=== PATIENT | female | born 1995 | race Caucasian/White ===

== ENCOUNTER 2022-03-22 10:10 | Inpatient (IN) ==
[2022-03-22] MEDS ORDERED: CITRIC ACID/SODIUM CITRATE 30 ML UDCUP PO ONE (11:15)
[2022-03-22] MEDS ORDERED: TRANEXAMIC ACID 1,000 MG in SODIUM CHLORIDE 0.9% 100 ML IV PRN (11:15)
[2022-03-22] MEDS ORDERED: ceFAZolin 2,000 MG/50 ML DUPLEX IV ONE (11:15)
[2022-03-22] MEDS ORDERED: OXYTOCIN/LR 20 UNIT/1,000 ML BAG IV ONE ×3 (11:15→18:52)
[2022-03-22] MEDS ORDERED: miSOPROStoL 200 MCG TABLET RECTAL PRN (11:15)
[2022-03-22] MEDS ORDERED: METHYLERGONOVINE 0.2 MG/1 ML AMP IM PRN (11:15)
[2022-03-22] MEDS ORDERED: FAMOTIDINE 20 MG/2 ML VIAL IV ONE (11:15)
[2022-03-22] MEDS ORDERED: CARBOPROST TROMETHAMINE 250 MCG/ML AMP IM PRN (11:15)
[2022-03-22] MEDS ORDERED: LACTATED RINGERS 1,000 ML IV SCH ×3 (11:30→18:52)
[2022-03-22 11:33] LABS: Basophils % 0.4 % (0.0-0.8); Eosinophils # 0.1 10*3/uL (0.0-0.87); Eosinophils % 0.6 % (0.00-10.9); Hematocrit 30.8 VOL% (35.7-47.0); Hemoglobin 9.6 GM/DL (12.0-16.0); Immature Granulocytes % 0.8 %; Immature Granulocytes Absolute 0.08 #; Lymphocytes % 20.5 % (21.3-54.2); Mean Corpuscular HGB Conc 31.2 GM/DL (32-36); Mean Corpuscular Volume 77.4 FL (87-102); Mean Platelet Volume 10.6 FL (9.6-12.0); Monocytes # 0.5 10*3/uL (0.11-0.8); Monocytes % 5.3 % (1.7-12.7); Neutrophils % 72.4 % (38.7-73.9); Platelet Count 202 T/CUMM (130-400); Red Blood Count 3.98 MC/CUMM (3.8-5.5); Red Cell Distribution Width 15.2 % (9.3-17.3); White Blood Count 9.8 T/CUMM (4-12)
[2022-03-22 11:52] LABS: Albumin 2.7 G/DL (3.4-5.0); Bilirubin,Total 0.5 MG/DL (0.20-1.00); Calcium 8.6 MG/DL (8.5-10.1); Osmolality,Calculated 274.5 MOS/KG (273-304); Potassium 3.5 MMOL/L (3.5-5.1); Total Protein 6.7 G/DL (6.4-8.2)
[2022-03-22] MEDS ORDERED: OXYTOCIN 10 UNIT/ML VIAL IM ONE ×2 (14:00→14:06)
[2022-03-22] MEDS ORDERED: OXYTOCIN/LR 30 UNIT/1,000 ML BAG IV ONE (14:00)
[2022-03-22] MEDS ORDERED: miSOPROStoL 200 MCG TABLET ONE (14:04)
[2022-03-22] MEDS ORDERED: CARBOPROST TROMETHAMINE 250 MCG/ML AMP IM ONE (14:04)
[2022-03-22] MEDS ORDERED: METHYLERGONOVINE 0.2 MG/1 ML AMP ONE (14:04)
[2022-03-22] MEDS ORDERED: buprenorphine HCL 0.3 MG/ML VIAL ONE ×2 (14:14→14:25)
[2022-03-22] MEDS ORDERED: ONDANSETRON 4 MG/2 ML VIAL ONE (14:38)
[2022-03-22] MEDS ORDERED: ACETAMINOPHEN INJ 1,000 MG/100 ML VIAL IV ONE (14:39)
[2022-03-22] MEDS ORDERED: KETOROLAC 30 MG/1 ML VIAL ONE (14:39)
[2022-03-22] MEDS ORDERED: ePHEDrine 50 MG/ML VIAL ONE (15:03)
[2022-03-22] MEDS ORDERED: DEXAMETHASONE 4 MG/1 ML VIAL ONE (15:19)
[2022-03-22 15:30] LABS: Cord Arterial Blood HCO3 22.9 MMOL/L
[2022-03-22 15:32] LABS: Cord Venous Blood HCO3 24.2 MMOL/L; Cord Venous Blood PCO2 45.1 MMHG; Cord Venous Blood PO2 31.2
[2022-03-22 15:34] LABS: Mucus,Urine Moderate /LPF (Occasional)
[2022-03-22 15:35] LABS: Bilirubin,Urine Negative (Negative); Blood, Urine Trace mg/dL (Negative); Glucose,Urine (UA) Negative (Negative); Ketones,Urine Negative (Negative); Nitrite,Urine Negative (Negative); Protein,Urine Trace mg/dL (Negative); Urine Appearance Clear (Clear); Urine Color Yellow (Yellow); Urine Specific Gravity > 1.030 (1.001-1.035)
[2022-03-22] MEDS ORDERED: PHENYLEPHRINE 1 MG/10 ML SYRINGE IV ONE (15:45)
[2022-03-22] MEDS ORDERED: ACETAMINOPHEN 325 MG TABLET PO PRN ×2 (16:03→18:52)
[2022-03-22] MEDS ORDERED: RHO(D) IMMUNE GLOBULIN 300 MCG SYRINGE IM ONE ×2 (16:03→18:52)
[2022-03-22] MEDS ORDERED: IBUPROFEN 800 MG TABLET PO PRN ×2 (16:03→18:52)
[2022-03-22] MEDS ORDERED: ONDANSETRON 4 MG/2 ML VIAL IV PRN ×2 (16:03→18:52)
[2022-03-22] MEDS ORDERED: MAGNESIUM HYDROXIDE SUSP 30 ML UDCUP PO PRN (16:03)
[2022-03-22] MEDS ORDERED: SIMETHICONE CHEW 80 MG TABLET PO PRN (16:03)
[2022-03-22 16:27] LABS: Barbiturates Screen,Urine Negative (Negative); Benzodiazepines Screen,Urine Negative (Negative); Cannabinoid Screen,Urine Negative (Negative); Opiate Screen,Urine Negative (Negative); Phencyclidine Screen,Urine Negative (Negative)
[2022-03-22] MEDS ORDERED: KETOROLAC 30 MG/1 ML VIAL IV SCH ×2 (16:30→21:30)
[2022-03-22] MEDS ORDERED: DOCUSATE SODIUM 100 MG CAPSULE PO SCH (21:00)
[2022-03-22] MEDS ORDERED: ACETAMINOPHEN 500 MG TABLET PO SCH (21:30)
[2022-03-22] MEDS: DOCUSATE SODIUM 100 MG CAPSULE PO SCH (22:42)
[2022-03-22 22:58] LABS: Basophils % 0.2 % (0.0-0.8); Hemoglobin 9.6 GM/DL (12.0-16.0); Immature Granulocytes % 0.6 %; Immature Granulocytes Absolute 0.11 #; Lymphocytes # 1.1 10*3/uL (1.4-4.0); Lymphocytes % 6.2 % (21.3-54.2); Mean Platelet Volume 10.4 FL (9.6-12.0); Monocytes # 0.4 10*3/uL (0.11-0.8); Monocytes % 2.1 % (1.7-12.7); Neutrophils % 90.9 % (38.7-73.9); Platelet Count 207 T/CUMM (130-400); Red Blood Count 4.05 MC/CUMM (3.8-5.5); Red Cell Distribution Width 15.2 % (9.3-17.3); White Blood Count 17.5 T/CUMM (4-12)
[2022-03-22] MEDS: BUPRENORPHINE SL TAB 2 MG TABLET SL SCH (22:59)
[2022-03-22 23:21] LABS: Anisocytosis Slight; Lymphocytes 5 % (20-55); Ovalocytes Slight; Platelet Estimate Normal; Total Cells Counted 100
[2022-03-23] MEDS: cephALEXin 500 MG CAPSULE PO SCH ×5 (00:05→23:35)
[2022-03-23 05:45] LABS: Basophils % 0.2 % (0.0-0.8); Eosinophils % 0.1 % (0.00-10.9); Hematocrit 28.5 VOL% (35.7-47.0); Hemoglobin 8.6 GM/DL (12.0-16.0); Immature Granulocytes % 0.7 %; Lymphocytes # 1.9 10*3/uL (1.4-4.0); Lymphocytes % 13.5 % (21.3-54.2); Mean Corpuscular HGB Conc 30.2 GM/DL (32-36); Mean Corpuscular Volume 78.9 FL (87-102); Mean Platelet Volume 10.9 FL (9.6-12.0); Monocytes # 0.5 10*3/uL (0.11-0.8); Monocytes % 3.8 % (1.7-12.7); Neutrophils % 81.7 % (38.7-73.9); Platelet Count 216 T/CUMM (130-400); Red Blood Count 3.61 MC/CUMM (3.8-5.5); Red Cell Distribution Width 15.3 % (9.3-17.3); White Blood Count 13.8 T/CUMM (4-12)
[2022-03-23] MEDS: SIMETHICONE CHEW 80 MG TABLET PO PRN ×2 (08:30→21:37)
[2022-03-23] MEDS: BUPRENORPHINE SL TAB 2 MG TABLET SL SCH ×2 (08:30→21:37)
[2022-03-23] MEDS: DOCUSATE SODIUM 100 MG CAPSULE PO SCH ×2 (08:30→21:37)
[2022-03-23] MEDS: MULTIVITAMIN (PRENATAL) TABLET PO SCH (08:31)
[2022-03-23] MEDS: MAGNESIUM HYDROXIDE SUSP 30 ML UDCUP PO PRN ×2 (08:31→21:37)
[2022-03-23] MEDS ORDERED: MULTIVITAMIN (PRENATAL) TABLET PO SCH (09:00)
[2022-03-24] MEDS: cephALEXin 500 MG CAPSULE PO SCH ×2 (05:46→12:43)
[2022-03-24] MEDS ORDERED: INFLUENZA VIRUS VACCINE 0.5 ML SYRINGE IM ONE ×2 (09:00→11:00)
[2022-03-24] MEDS: BUPRENORPHINE SL TAB 2 MG TABLET SL SCH (09:20)
[2022-03-24] MEDS: MULTIVITAMIN (PRENATAL) TABLET PO SCH (09:20)
[2022-03-24] MEDS: SIMETHICONE CHEW 80 MG TABLET PO PRN (09:20)
[2022-03-24] MEDS: MAGNESIUM HYDROXIDE SUSP 30 ML UDCUP PO PRN (09:21)
[2022-03-24] MEDS: DOCUSATE SODIUM 100 MG CAPSULE PO SCH (09:21)
[2022-03-24 09:47] VITALS: BP 116/67
[2022-03-24] MEDS ORDERED: DIPH/TET/ACEL PERT BOOSTER VACCINE 0.5 ML VIAL IM ONE (10:31)
== END 2022-03-24 12:45 | disposition home or self-care (01) | DRG 785 ==
LOC: N.LD 10:10 → N.OB 13:46 → N.LD 13:52 → N.OB 18:50
PROVIDERS: ADMIT Obstetrics & Gynecology; ATTEND Obstetrics & Gynecology